=== PATIENT | male | born 1985 | race Caucasian/White ===

== ENCOUNTER 2024-09-07 11:25 | Emergency (ER) | payer BC, SELFPAY ==
[2024-09-07 11:33] VITALS: BP 144/91
--- NOTE | 2024-09-07 11:55 | ED.GENMED ---
History of Present Illness
General
Chief Complaint: Cold/Flu/URI Symptoms
Source: patient
Exam Limitations: none
Time Seen by Provider: 09/07/24 11:36
History of Present Illness
History of Present Illness:
See MDM
Past History
Past History
ED Past Medical History: Asthma
Social History
Tobacco: Non-smoker
Alcohol: Occasional
Phy Exam
Physical Exam
Physical Exam:
See MDM
Course
Orders/Labs/Results
Orders:
Orders
09/07/24 11:54
0.9% Sodium Chloride 1000 ml [Nss] 1,000 ml IV BOLUS
09/07/24 11:56
CPK [Creatine Phosphokinase] Urgent
Complete Blood Count/With Diff Urgent
Comprehensive Metabolic Panel Urgent
09/07/24 11:57
COVID-19 Antigen Urgent
Source: Nasal Swab
Influenza A+B Rapid Molecular Urgent
DANIEL Source: Nasal Swab
Specimen Description:
09/07/24 12:56
0.9% Sodium Chloride 1000 ml [Nss] 1,000 ml IV BOLUS
09/07/24 13:57
0.9% Sodium Chloride 1000 ml [Nss] 1,000 ml IV BOLUS
09/07/24 14:08
Cyclobenzaprine HCl [Flexeril] 10 mg PO NOW STA
Abnormal Lab Results
09/07/24
11:56
RBC 4.50 L 10^6/uL
(4.70-6.10)
RDW 11.3 L %
(11.5-14.5)
AST 108 H U/L
(17-59)
Creatine Kinase 2615 H U/L
(55-170)
09/07/24 11:56
09/07/24 11:56
Vital Signs
Initial and Last Documented VS:
Initial Vital Signs
Temp Pulse Resp BP Pulse Ox
98.0 F 78 16 144/91 99
09/07/24 11:33 09/07/24 11:33 09/07/24 11:33 09/07/24 11:33 09/07/24 11:33
Last Documented Vital Signs
Temp Pulse Resp BP Pulse Ox
98.0 F 78 16 128/85 100
09/07/24 11:33 09/07/24 11:33 09/07/24 11:33 09/07/24 13:00 09/07/24 13:15
MDM/Problems Addressed
Differential Diagnosis Includes:
HPI and MDM Narrative:
39-year-old male presenting for evaluation of muscle aches. Patient noted intermittent fevers overnight over the past few nights. Symptoms are improved with Motrin. He is now noticing muscle aches in his shoulders and arms and hamstrings. He did
have a full body workout a few days ago which is not abnormal for him. He denies any sick contacts. On exam, he is well-appearing nontoxic. He is mildly dry. Will provide IV fluids with concern for mild rhabdomyolysis. Will obtain viral testing
to look as a viral cause for myositis.
Physical exam
General: Well appearing and non-toxic
HEENT: protecting airway. Mildly dry mucous membranes. Posterior pharynx clear
Neck: supple
CV: No evidence of cyanosis. Regular rate and rhythm
Resp: No accessory muscle use. Lungs clear
Abd: Non-distended
Extremities: No deformities. Reproducible tenderness noted to palpation of bilateral biceps and forearms and hamstrings. Compartments soft
Neuro: alert
Psych: Normal affect
Skin: No rash noted
Problems Addressed including Acute and Chronic Conditions affecting care:
1. Myositis
Acuity: acute
Prognosis: stable
Details: Will start IV fluids with concern for rhabdomyolysis. Will check COVID and influenza
Updates
Creatinine within normal limits but CPK elevated at 2600. Will give third liter of IV fluids and discussed return precautions
Differential Diagnosis (but not limited to): Viral myositis, rhabdo myelitis, dehydration
Testing considered: Chest x-ray but lungs clear
Drug therapy (if applicable): OTC meds, please see d/c instruction regarding Rx drugs
Amount and/or Complexity of Data Reviewed
Clinical info obtained from: Patient
External data reviewed: N/A
Labs I independently reviewed (but not limited to): Elevated CPK
Radiology: N/A
Pulse Ox: not hypoxic
EKG independently reviewed: N/A
Electronic Equipment Repairmen: N/A
Critical Care: N/A
Risk of Complication:
Social Determinants of health: Good social support
Discussed with other providers: N/A
Escalation of Care includes Admit/Obs: After being observed in the Emergency Department, pt stable for discharge.
Occasional wrong word or 'sound a like' substitutions may have occurred due to the inherent limitations of voice recognition software. Read the chart carefully and recognize, using context, where substitutions have occurred.
*Critical Care Note
Total Time (30-74mins, 75-104mins- exclusive of procedures): Not Applicable
ED Attending Note
-
Portions of this chart may have been created with voice recognition software.� Occasional wrong word or��sound alike� substitutions may have occurred due to the inherent limitations of voice recognition software.
Discharge Plan
Departure
Patient Disposition: Home (Routine Discharge)
Date of Disposition: 09/07/24
Time of Disposition: 14:09
Patient with high blood pressure during this ER visit?: No
Discharge Problem:
Rhabdomyolysis
Instructions: Rhabdomyolysis
Prescriptions:
New
metaxalone 800 mg tablet
800 mg PO TID PRN (Reason: muscle pain) Qty: 14 0RF
Referrals:
Delfina Murphy DO [Family Provider] -
Activity Restrictions/Additional Instructions:
Drink plenty of water and please return for worsening symptoms.
Interventions
Interventions:
*Risk Screen - Suicide Last Done: 09/07/24 11:33
*General Assessment Last Done: 09/07/24 12:06
*Neglect/Abuse Screening Last Done: 09/07/24 11:33
*ED- Fall Risk Assessment Last Done: 09/07/24 12:06
*ED COVID-19 Vaccine History Last Done: 09/07/24 12:06
ED- Pulmonary Assessment Last Done: 09/07/24 12:17
Discharge Date and Time
Print Language: DJIBOUTIAN
[2024-09-07] MEDS: NSS 1000 IV ×3 (11:59→14:11)
[2024-09-07 12:16] LABS: % Basophils 0.5 % (0-2); % Eosinophils 0.5 % (0-6); % Immature Granulocytes 0.2 % (0-0.5); % Lymphocytes 31.1 % (20.5-51.1); % Neutrophils 58.7 % (42.2-75.2); Absolute Lymphocytes 1.7 10^3/uL (1.2-3.4); Absolute Monocytes 0.5 10^3/uL (0.1-0.6); Absolute Neutrophils 3.2 10^3/uL (1.4-6.5); Hematocrit 39.7 % (39.0-52.0); Hemoglobin 13.8 g/dL (13.0-18.0); Mean Corp Hgb Conc. 34.8 g/dL (33.0-37.0); Mean Corpuscular Hgb 30.7 pg (27.0-31.0); Mean Corpuscular Volume 88.2 fL (80.0-94.0); Mean Platelet Volume 10.2 fL (7.4-10.4); Nucleated Red Blood Cells % 0 % (-); Platelet Count 189 10^3/uL (130-400); Red Cell Dist. Width 11.3 % (11.5-14.5); White Blood Cell Count 5.5 10^3/uL (4.8-10.8)
[2024-09-07 12:33] LABS: ALT (SGPT) 34 U/L (0-50); AST (SGOT) 108 U/L (17-59); Albumin 4.7 g/dl (3.5-5.0); Alkaline Phosphatase 51 U/L (38-126); Blood Urea Nitrogen 16 mg/dl (9-20); Calcium 9.5 mg/dl (8.4-10.2); Carbon Dioxide 27 mmol/L (22-30); Chloride 104 mmol/L (98-107); Glucose 99 mg/dl (70-99); Potassium 4.5 mmol/L (3.5-5.1); Sodium 140 mmol/L (135-145); Total Bilirubin 0.5 mg/dl (0.2-1.3); Total Protein 7.2 g/dl (6.3-8.2); eGFR > 60.00
[2024-09-07 12:50] LABS: COVID-19 Antigen Negative (Negative)
[2024-09-07 13:00] VITALS: BP 128/85
[2024-09-07 13:53] LABS: Creatine Phosphokinase 2615 U/L (55-170)
[2024-09-07 14:00] VITALS: BP 138/87
[2024-09-07] MEDS: FLEXERIL 10 MG PO (14:11)
== END 2024-09-07 16:01 | disposition home or self-care (01) ==
LOC: EMR 11:25
PROVIDERS: EMERGENCY PHYSICIAN Student in an Organized Health Care Education/Training Program; FAMILY PHYSICIAN Student in an Organized Health Care Education/Training Program
DX: M62.82 Rhabdomyolysis (principal); Z11.52 Encounter for screening for COVID-19
CPT/HCPCS: 99284; 96360; 96361 ×2; 80053; 82550; 85025; 87502; 87811; 99285